=== PATIENT | male | born 2000 | race Caucasian/White ===

== ENCOUNTER 2022-08-28 10:37 | Emergency (ER) | payer OTHER ==
[~2022-08-28] VITALS: Ht 167.6 cm; Wt 70.3 kg
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
[2022-08-28 10:44] VITALS: BP_SYST 154
--- NOTE | 2022-08-28 11:00 | NUR ---
Dr Jon evaluating patient at bedside
[2022-08-28] MEDS ORDERED: DEC4 PO (11:22)
[2022-08-28] MEDS ORDERED: AUG875 PO (11:22)
[2022-08-28] MEDS ORDERED: NAPR-690 PO (12:56)
[2022-08-28 13:21] VITALS: BP_SYST 154
--- NOTE | 2022-08-28 13:24 | NUR ---
Patient given written and verbal discharge instructions and verbalizes understanding. ER MD discussed with patient the results and treatment provided. Patient in stable condition. ID arm band removed. Rx of Naproxen given. Patient educated on pain management and to follow up with PMD. Pain Scale 2/10. Opportunity for questions provided and answered. Medication side effect fact sheet provided.
== END 2022-08-28 13:24 | disposition home or self-care (01) ==
LOC: SED 10:37
DX: S13.4XXA Sprain of ligaments of cervical spine, initial encounter (principal); S43.402A Unspecified sprain of left shoulder joint, initial encounter; Z79.899 Other long term (current) drug therapy; V89.2XXA Person injured in unspecified motor-vehicle accident, traffic, initial encounter; Y93.89 Activity, other specified; Y92.89 Other specified places as the place of occurrence of the external cause; Y99.8 Other external cause status
CPT/HCPCS: 72040-TC; 73030; 99284